=== PATIENT | male | born 1955 | race Caucasian/White ===

== ENCOUNTER 2021-09-08 15:59 | Emergency (ER) | payer OTHER ==
[~2021-09-08 15:59] MED LIST: Iopamidol 300 61% 100 ML VIAL FS ONE
[2021-09-08 16:40] LABS: Bilirubin Neg (Negative); Blood, Urine 25 (Negative); Clarity Clear (Clear); Glucose, Urine (Dipstick) Normal (Negative); Ketone, Urine Negative (Negative); Leukocyte Negative (Negative); Nitrite Negative (Negative); Protein, Urine (Dipstick) 100 mg/dl (Neg-Trace)
[2021-09-08 16:53] LABS: Bacteria/HPF None Seen HPF (None Seen); RBC/HPF 0-3 HPF (0-3); Squamous Epithelial 0-3 HPF (0-3); WBC/HPF 0-3 HPF (0-3)
[2021-09-08 17:00] LABS: #Basophils 0.1 10x3/uL (0.0-0.2); #Monocytes 0.6 10x3/uL (0.0-1.1); #Neutrophils 10.8 10x3/uL (1.5-8.4); %Basophils 0.6 % (0.0-2.0); %Eosinophils 0.2 % (0.0-6.0); %Lymphocytes 7.1 % (18.0-47.0); %Monocytes 4.9 % (0.0-10.0); %Neutrophils 86.7 % (40.0-75.0); Hemoglobin 16.8 g/dL (13.5-17.5); Mean Corpuscular HGB CONC 32.7 g/dL (32.0-36.0); Mean Corpuscular Hemoglobin 29.1 pg (27.0-33.0); Mean Corpuscular Volume 88.9 fl (81.2-95.1); Mean Platelet Volume 10.7 fl (7.4-10.4); Platelet Count 247 10x3/uL (150-450); RBC Distribution Width 13.8 % (11.5-14.5); Red Blood Cell (RBC) Count 5.78 10x6/uL (4.32-5.72); White Blood Cell (WBC) Count 12.4 10x3/uL (3.5-10.5)
[2021-09-08] MEDS ORDERED: Ketorolac Tromethamine 30 MG/ML VIAL ONE (17:01)
[2021-09-08 17:14] LABS: ALT (SGPT) 24 U/L (8-55); AST (SGOT) 37 U/L (5-34); Albumin 3.8 g/dL (3.4-4.8); Alkaline Phosphatase 63 U/L (40-110); Anion Gap 16 mmol/L (10-20); BUN (Urea Nitrogen) 19 mg/dL (8.4-25.7); Bilirubin, Total 0.7 mg/dL (0.2-1.2); Calc. Creatinine Clearance 0 mL/min (70-130); Calcium 9.2 mg/dL (7.8-10.44); Carbon Dioxide 20 mmol/L (23-31); Chloride 105 mmol/L (98-107); Globulin 4.5 g/dL (2.4-3.5); Glucose 107 mg/dL (80-115); Lipase 27 U/L (8-78); Potassium 4.7 mmol/L (3.5-5.1); Protein, Total 8.3 g/dL (5.8-8.1); Sodium 136 mmol/L (136-145)
[2021-09-08] MEDS ORDERED: Piperacillin/Tazobactam 4.5 GM in Sodium Chloride 0.9% 100 ML IVPB SCH (17:30)
[2021-09-08] MEDS ORDERED: Piperacillin/Tazobactam 3.375 GM VIAL ONE (17:42)
[2021-09-08 19:06] LABS: SARS-CoV-2 NAA Rapid Test Not Detected (NotDetected)
[2021-09-08 19:50] LABS: Lactic Acid 2.1 mmol/L (0.5-2.2)
[2021-09-08] MEDS ORDERED: Ondansetron PF 4 MG/2 ML Vial ONE (21:37)
== END 2021-09-08 22:39 | disposition short-term general hospital (02) ==
LOC: CSHERS 15:59 → EEVIPCON 15:59 → CSHERS 22:39
DX: K56.609 Unspecified intestinal obstruction, unspecified as to partial versus complete obstruction (principal); R00.0 Tachycardia, unspecified; Z20.822 Contact with and (suspected) exposure to COVID-19; Z87.19 Personal history of other diseases of the digestive system
CPT/HCPCS: 36415; 43752; 71045; 74177; 80053; 81003; 81015; 83605; 83690; 83880; 84484; 85025; 87040; 87086; 93005; 96374; 96375; J1885; J2405; J2543; J3490; Q9967; U0002

== ENCOUNTER 2023-04-25 02:46 | Inpatient (IN) | payer OTHER ==
[2023-04-25] MEDS ORDERED: Morphine 4 MG/ML VIAL ONE (03:20)
[2023-04-25 03:42] LABS: ALT (SGPT) 22 U/L (8-55); AST (SGOT) 34 U/L (5-34); Albumin 3.9 g/dL (3.4-4.8); Alkaline Phosphatase 79 U/L (40-110); Anion Gap 14 mmol/L (10-20); BUN (Urea Nitrogen) 15 mg/dL (8.4-25.7); Bilirubin, Total 0.9 mg/dL (0.2-1.2); Calc. Creatinine Clearance 0 mL/min (70-130); Calcium 9.7 mg/dL (7.8-10.44); Carbon Dioxide 24 mmol/L (23-31); Chloride 102 mmol/L (98-107); Estimated GFR 75; Globulin 4.6 g/dL (2.4-3.5); Glucose 107 mg/dL (80-115); Lipase 33 U/L (8-78); Potassium 4.3 mmol/L (3.5-5.1); Protein, Total 8.5 g/dL (5.8-8.1); Sodium 136 mmol/L (136-145)
[2023-04-25 03:43] LABS: Hematocrit 51.5 % (38.8-50.0); Hemoglobin 16.9 g/dL (13.5-17.5); Mean Corpuscular HGB CONC 32.8 g/dL (32.0-36.0); Mean Corpuscular Hemoglobin 29.3 pg (27.0-33.0); Mean Corpuscular Volume 89.3 fl (81.2-95.1); Platelet Count 264 10x3/uL (150-450); Red Blood Cell (RBC) Count 5.77 10x6/uL (4.32-5.72); White Blood Cell (WBC) Count 15.2 10x3/uL (3.5-10.5)
[2023-04-25 03:53] LABS: MDiff Complete? YES
[2023-04-25] MEDS ORDERED: Piperacillin/Tazobactam 4.5 GM VIAL ONE (04:36)
[2023-04-25] MEDS ORDERED: PROPOFOL 20 ML ONE (05:13)
[2023-04-25] MEDS ORDERED: Fentanyl 250 MCG/5 ML VIAL ONE (05:13)
[2023-04-25] MEDS ORDERED: Dexamethasone 4 mg/ml Vial ONE (05:14)
[2023-04-25] MEDS ORDERED: Ondansetron PF 4 MG/2 ML Vial ONE (05:14)
[2023-04-25] MEDS ORDERED: Rocuronium Bromide 10 MG/ML (10ML VIAL) ONE (05:14)
[2023-04-25] MEDS ORDERED: Succinylcholine 200 MG/10 ml SYRINGE FS ONE (05:14)
[2023-04-25] MEDS ORDERED: Lidocaine 1% PF 5 ML VIAL ONE (05:21)
[2023-04-25 05:26] LABS: Band 2 % (5-11); Lymphocytes 19 % (21-51); Monocytes 8 % (0-10); Promyelocytes 1 % (0-0)
[2023-04-25 05:27] LABS: Myelocyte 0 % (0-0); Neutrophil 70 % (42-75)
[2023-04-25 05:30] LABS: Platelet Adequacy Comment Appears Adequate; Toxic Granulation SLIGHT
[2023-04-25] MEDS ORDERED: PHENYLEPHRINE-NS 100 MCG/ML 10 ML SYRINGE ONE (06:14)
[2023-04-25] MEDS ORDERED: SUGAMMADEX SODIUM 200 MG/2 ML VIAL ONE (06:29)
[2023-04-25] MEDS ORDERED: HYDROcodone/Acetaminophen 10/325 mg Tablet PO PRN (06:55)
[2023-04-25] MEDS ORDERED: Promethazine HCl 25 MG/ML VIAL IM PRN (06:55)
[2023-04-25] MEDS ORDERED: Ondansetron PF 4 MG/2 ML Vial IVP PRN (06:55)
[2023-04-25] MEDS ORDERED: hydrALAZINE 20 MG/ML VIAL SLOW IVP PRN (06:55)
[2023-04-25] MEDS ORDERED: Morphine 4 MG/ML VIAL SLOW IVP PRN (06:55)
[2023-04-25] MEDS ORDERED: Morphine 2 MG/ML VIAL SLOW IVP PRN (06:55)
[2023-04-25] MEDS ORDERED: Calcium Carbonate 500 MG ChewTAB PO PRN (06:55)
[2023-04-25] MEDS ORDERED: Acetaminophen 325 MG TAB PO PRN (06:55)
[2023-04-25] MEDS ORDERED: Ipratropium/Albuterol 3 ML NEB NEB PRN (06:55)
[2023-04-25] MEDS ORDERED: Mag-Al 1200 mg/1200 mg/30 ML UDCUP PO PRN (06:55)
[2023-04-25] MEDS ORDERED: fentaNYL 50 mcg/mL 1 mL Vial ONE (07:11)
[2023-04-25 08:09] VITALS: BMI 29.9
[2023-04-25] MEDS ORDERED: Piperacillin/Tazobactam 3.375 GM in Sodium Chloride 0.9% 100 ML IVPB SCH (09:30)
[2023-04-25] MEDS: HYDROcodone/Acetaminophen 10/325 mg Tablet PO PRN ×2 (09:33→22:44)
[2023-04-25] MEDS: Docusate 100 MG CAP PO SCH ×2 (09:33→22:28)
[2023-04-25] MEDS ORDERED: Iopamidol 300 61% 100 ML VIAL FS ONE (09:39)
[2023-04-25] MEDS: Lactated Ringer's 1,000 ML IV SCH ×2 (09:42→18:16)
[2023-04-25] MEDS: Piperacillin/Tazobactam 3.375 GM in Sodium Chloride 0.9% 100 ML IVPB SCH ×2 (09:45→17:05)
[2023-04-25] MEDS: Ketorolac Tromethamine 30 MG (1 mL) VIAL IVP SCH ×2 (13:14→18:16)
[2023-04-25] MEDS ORDERED: Enoxaparin 40 MG (0.4 mL) SYRINGE SC SCH (21:00)
[2023-04-26] MEDS: Piperacillin/Tazobactam 3.375 GM in Sodium Chloride 0.9% 100 ML IVPB SCH ×2 (01:00→08:28)
[2023-04-26] MEDS: Ketorolac Tromethamine 30 MG (1 mL) VIAL IVP SCH ×3 (01:00→12:48)
[2023-04-26] MEDS: Lactated Ringer's 1,000 ML IV SCH (01:01)
[2023-04-26 06:16] LABS: Hematocrit 46.4 % (38.8-50.0); Hemoglobin 14.9 g/dL (13.5-17.5); Mean Corpuscular HGB CONC 32.1 g/dL (32.0-36.0); Mean Corpuscular Hemoglobin 29.2 pg (27.0-33.0); Mean Corpuscular Volume 90.8 fl (81.2-95.1); Mean Platelet Volume 11.6 fl (7.4-10.4); Platelet Count 232 10x3/uL (150-450); RBC Distribution Width 13.9 % (11.5-14.5); Red Blood Cell (RBC) Count 5.11 10x6/uL (4.32-5.72)
[2023-04-26 06:35] LABS: Lymphocytes 8 % (21-51); Monocytes 14 % (0-10); Reactive Lymphocytes 17 % (0-10)
[2023-04-26 06:37] LABS: Platelet Adequacy Comment Appears Adequate; Toxic Granulation SLIGHT
[2023-04-26 06:46] LABS: MDiff Complete? YES
[2023-04-26] MEDS: Docusate 100 MG CAP PO SCH (08:27)
[2023-04-26 12:27] VITALS: TEMP 97.6
[2023-04-26 14:51] VITALS: BP 101/59
== END 2023-04-26 16:10 | DRG 355 ==
LOC: EEVIPCON 02:46 → CSHERS 02:46 → CSHTELE 06:23
PROVIDERS: ADMIT Surgery; ATTEND Surgery
PROC: 0WQF0ZZ Repair Abdominal Wall, Open Approach (ICD-10-PCS; principal; 2023-04-25)
DX: K43.0 Incisional hernia with obstruction, without gangrene (principal); F32.A Depression, unspecified; K21.9 Gastro-esophageal reflux disease without esophagitis; Z98.890 Other specified postprocedural states; Z88.5 Allergy status to narcotic agent
CPT/HCPCS: 74177; 80053; 83605; 83690; 85025; 93005; J1100; J1650; J1885; J2270; J2405; J2543; J2704; J3010; J3490; J7120